=== PATIENT | male | born 1975 | race Caucasian/White ===

== ENCOUNTER 2018-07-08 12:32 | Day surgery (SDC) | payer BC ==
[2018-07-07 10:02] VITALS: BMI 33.9
[~2018-07-08 12:32] MED LIST: Glycopyrrolate 0.2 MG/ML 5 ML SYRINGE ONE; Labetalol 100 MG TAB ONE; Lidocaine 1% PF 5 ML VIAL ONE; PROPOFOL 200 MG/20 ML VIAL ONE; Succinylcholine Chloride 20 MG/ML 10 ml SYRINGE FS ONE
[2018-07-08] MEDS ORDERED: Oxymetazoline HCl 0.05% ( 15 ML ) ONE (14:43)
[2018-07-08] MEDS ORDERED: Lidocaine 1% w/Epinephrine 1:100K 30 ML VIAL ONE (14:43)
[2018-07-08] MEDS ORDERED: Fentanyl 100 MCG/2 ML VIAL ONE ×5 (14:52→16:57)
[2018-07-08] MEDS ORDERED: Midazolam HCl 2 mg/2 ml Vial ONE (14:52)
[2018-07-08] MEDS ORDERED: Ferric Subsulfate 8 ML BOT ONE (15:37)
[2018-07-08] MEDS ORDERED: Ondansetron PF 4 MG/2 ML Vial ONE (16:00)
[2018-07-08] MEDS ORDERED: Ketorolac Tromethamine 30 MG/ML VIAL ONE (16:00)
[2018-07-08] MEDS ORDERED: Ciprofloxacin 0.2% Otic 1 DROP CON ONE (16:34)
--- NOTE | 2018-07-09 11:56 | OP ---
DATE OF PROCEDURE: 07/08/2018 PREOPERATIVE DIAGNOSES: Sleep apnea, obstructive; uvula hypertrophy; obstructive tonsillar hypertrophy; sleep disordered breathing; snoring; obstructive hypertrophied inferior turbinates. POSTOPERATIVE DIAGNOSES: Sleep apnea, obstructive; uvula hypertrophy; obstructive tonsillar hypertrophy; sleep disordered breathing; snoring; obstructive hypertrophied inferior turbinates. PROCEDURES PERFORMED: 1. Bilateral nasal endoscopy with submucosal resection of inferior turbinates. 2. Tonsillectomy over 12 years of age. 3. Uvulectomy. After consent was obtained, the patient was identified, brought to the operating room, and placed on the operating room table in the supine position. Consent was obtained, notifying the patient of the possibility of additional infections, bleeding, brain injury, and eye/orbital injury. The patient was placed on the operating room table, and general endotracheal anesthesia and intravenous access was obtained. The patient was then positioned, prepped and draped for endoscopic sinus surgery. Nasal preparation included trimming nasal vestibular hairs and spraying in topical Afrin. We then placed Afrin topical solution on nasal pledgets and strategically located them intranasally. The perinasal mucosa was injected with 1% lidocaine with 1:100,000 epinephrine in the submucoperichondrial plane of the septum, lateral nasal wall, and anterior to the uncinate. The patient was then prepped and draped in a sterile fashion and positioned for endoscopic sinus surgery. With the 0-degree endoscope, the patient underwent systematic nasal endoscopy. There were no suspicious internasal masses or lesions identified. We then focused our attention to the osteomeatal complex region under the middle turbinate. The inferior turbinates were visualized with a 0-degree endoscope and outfractured with a Scroggins elevator. The inferior medial aspect was cauterized with the electrocautery. Hemostasis was obtained . After adequate airway was established, we turned our attention to the contralateral side and used a similar procedure. Again, a Scroggins elevator was used to outfracture inferior turbinates under endoscopic visualization. With a suction cautery, the free inferior medial aspect was cauterized under direct visualization along the length of the inferior turbinate. At this point, we then turned our attention to the contralateral side and proceeded with endoscopic sinus surgery. General endotracheal anesthesia and intravenous access was obtained and we proceeded with positioning the patient for oropharyngeal surgery. Oropharyngeal exposure was obtained with a Jose Luis-Jitendra mouth gag after a head drape was placed and secured with a towel clip. The Jose Luis-Jitendra mouth gag was then suspended from the Holman tray and palatal elevation was achieved with a red rubber catheter. The right tonsil was addressed first. We used a curved Allis to grasp the tonsil and retract it medially as an anterior pillar incision was made with a #12 blade. The retrotonsillar fascial plane was then established and blunt dissection was performed with the suction cautery. Blood vessels were anticipated, identified, and cauterized as they were encountered. Ultimately, dissection was carried to the posterior tonsillar pillar mucosa which was incised hemostatically, as well as the base of tongue connection. The tonsil was then passed off as a specimen and bleeding points within the tonsillar bed were cauterized under direct visualization. We subsequently turned our attention to the contralateral side, where using a similar technique, a near identical procedure was performed. Again, the tonsil was grasped and retracted medially with a curved Allis as an anterior pillar incision was made with a #12 blade. The retrotonsillar fascial plane was established and while the anterior pillar was retracted medially, the hemostatic blunt dissection of the tonsil with a suction cautery was performed with blood vessels anticipated, identified, and cauterized as they were encountered. Again, dissection continued to the base of tongue and posterior tonsillar pillar mucosa which was incised in a hemostatic fashion. The tonsillar beds were then carefully inspected and bleeding points were identified and cauterized with a suction cautery. After this portion of the procedure, hemostasis was completely obtained. The patient's oral cavity was copiously irrigated with iced saline and subsequently suctioned. We then used the red rubber catheter to suction the gastric contents. The uvula was then grasped and retracted inferiorly as vertical incisions were made on either side of the insertion of the uvula into the soft palate. A crescentic portion of soft palate was then removed on each side of the relaxing incision, and the uvula was transected at the site where it normally would have interfaced with the soft palate. The anterior and posterior aspect of the wound was then reapproximated with interrupted chromic sutures. The patient was then awakened, extubated, and transferred to recovery where patient remained in stable condition prior to discharge home. There were no complications. Prescriptions for pain medication and antibiotics were provided. Job ID: [id number]
--- NOTE | 2018-07-09 18:57 | EKG ---
Test Reason : PREOP Blood Pressure : / mmHG Vent. Rate : 073 BPM Atrial Rate : 073 BPM P-R Int : 152 ms QRS Dur : 080 ms QT Int : 382 ms P-R-T Axes : 071 019 041 degrees QTc Int : 420 ms Normal sinus rhythm Normal ECG No previous ECGs available Confirmed by Sanchez REIS ([id number]) on 07/09/2018 6:57:05 PM Referred By: MEÑO Confirmed By:Sanchez REIS
== END 2018-07-08 17:50 | disposition home or self-care (01) ==
LOC: SDC 12:32
PROVIDERS: ATTEND Specialist
DX: J35.3 Hypertrophy of tonsils with hypertrophy of adenoids (principal); J34.3 Hypertrophy of nasal turbinates; G47.33 Obstructive sleep apnea (adult) (pediatric); K13.79 Other lesions of oral mucosa; J34.2 Deviated nasal septum; Z99.89 Dependence on other enabling machines and devices
CPT/HCPCS: 88302; 88304; 93005; 93010; 96374; J1885; J2001; J2250; J2405; J2704; J3010; J3490